=== PATIENT | female | born 1960 | race Caucasian/White ===

== ENCOUNTER 2020-02-12 04:45 | Emergency (ER) | payer BC ==
[2020-02-12] MEDS ORDERED: Ondansetron PF 4 MG/2 ML Vial ONE (05:35)
[2020-02-12 05:36] LABS: #Basophils 0.1 thou/uL (0.0-0.2); #Eosinphils 0.2 thou/uL (0.0-0.7); #Lymphocytes 2.8 thou/uL (1.20-3.40); #Monocytes 1.2 thou/uL (0.11-0.59); #Neutrophils 10.8 thou/uL (1.40-6.50); %Basophils 0.6 % (0.0-1.0); %Eosinophils 1.1 % (0.0-10.0); %Lymphocytes 18.5 % (21.0-51.0); %Monocytes 7.9 % (0.0-10.0); %Neutrophils 71.9 % (42.0-75.0); Hemoglobin 13.4 g/dL (12.0-16.0); Mean Corpuscular HGB CONC 33.7 g/dL (32.0-36.0); Mean Corpuscular Hemoglobin 33.6 pg (27.0-31.0); Mean Corpuscular Volume 99.6 fL (78.0-98.0); Mean Platelet Volume 7.5 fL (7.4-10.4); Platelet Count 270 thou/uL (130-400); RBC Distribution Width 11.8 % (11.5-14.5); Red Blood Cell (RBC) Count 3.99 mill/uL (4.20-5.40); White Blood Cell (WBC) Count 15.1 thou/uL (4.8-10.8)
[2020-02-12 05:59] LABS: ALT (SGPT) 13 U/L (8-55); AST (SGOT) 19 U/L (5-34); Albumin 3.9 g/dL (3.5-5.0); Alkaline Phosphatase 75 U/L (40-110); Anion Gap 8 mmol/L (10-20); BUN (Urea Nitrogen) 12 mg/dL (9.8-20.1); Bilirubin, Total 0.3 mg/dL (0.2-1.2); Calc. Creatinine Clearance 0 mL/min (70-130); Calcium 9.1 mg/dL (7.8-10.44); Carbon Dioxide 25 mmol/L (22-29); Chloride 108 mmol/L (98-107); Estimated GFR-MDRD 77; Globulin 2.5 g/dL (2.4-3.5); Glucose 94 mg/dL (70-105); Potassium 3.4 mmol/L (3.5-5.1); Protein, Total 6.4 g/dL (6.0-8.3); Sodium 138 mmol/L (136-145)
--- NOTE | 2020-02-12 07:16 | CT ---
CT OF THE BRAIN WITHOUT CONTRAST: Date: 02/12/2020 COMPARISON: 05/05/2017. HISTORY: Fell and hit back of head a couple of hours ago. TECHNIQUE: Multiple contiguous axial images were obtained in a CT of the brain without contrast. FINDINGS: The brain is normal in morphology and attenuation without focal lesions or confluent areas of infarct ion. There is no evidence of hydrocephalus, intracranial hemorrhage, or extra-axial fluid collection. The calvarium and overlying soft tissues are unremarkable. The visualized paranasal sinuses and masto id air cells are well aerated. IMPRESSION: No evidence of acute intracranial abnormality. POS: [facility]
--- NOTE | 2020-02-12 07:45 | RAD ---
SINGLE VIEW OF CHEST AND RIGHT RIB SERIES: Date: 02/12/2020 HISTORY: Fell and hit head. Right chest pain. FINDINGS: Single view of the chest and multiple views of the right ribs show a normal sized cardiomediastinal s ilhouette. There is no evidence of consolidation, mass, or pleural effusion. No displaced rib fracture is seen. No pneumothorax is seen. No underlying pleural thickening is seen. IMPRESSION: 1. No evidence of displaced right rib fracture. 2. No evidence of acute cardiopulmonary disease. POS: [facility]
== END 2020-02-12 06:27 | disposition home or self-care (01) ==
LOC: ERS 04:45
DX: S09.90XA Unspecified injury of head, initial encounter (principal); S22.31XA Fracture of one rib, right side, initial encounter for closed fracture; F32.9 Major depressive disorder, single episode, unspecified; F41.9 Anxiety disorder, unspecified; M79.7 Fibromyalgia; W10.9XXA Fall (on) (from) unspecified stairs and steps, initial encounter
CPT/HCPCS: 70450; 80053; 85025; 93005; 96360; J2405

== ENCOUNTER 2020-04-02 15:09 | Outpatient (CLI) | payer BC ==
--- NOTE | 2020-04-02 15:39 | RAD ---
EXAM: XR Cervical Sp Com W/Obl Fl/Ex PROVIDED CLINICAL HISTORY: Cervical spine pain. Patient fell 6 weeks ago. COMPARISON: None FINDINGS: C1 to the cervicothoracic junction is seen on the lateral view. The vertebral body heights and interv ertebral disc spaces are within normal limits. Trace anterolisthesis is seen at the C4-5 level on flexion but is not present on extension or neutral positioning. The vertebral body heights are within normal limits, no fracture is seen. Multilevel facet degenerative changes are identified. Oblique imaging demonstrates no significant bony encroachment on the neural foramina. AP and odontoid views w ere not provided. IMPRESSION: 1. Trace anterolisthesis of C4 on C5 is present with flexion but not visualized with neutral position ing or on extension. 2. Multilevel facet degenerative changes. 3. No fracture is seen on provided lateral or oblique images.
== END 2020-04-02 15:10 | disposition home or self-care (01) ==
LOC: BICRAD 15:09
PROVIDERS: ATTEND Nurse Practitioner Family
DX: M54.2 Cervicalgia (principal); M47.812 Spondylosis without myelopathy or radiculopathy, cervical region
CPT/HCPCS: 72052

== ENCOUNTER 2020-07-04 14:45 | Outpatient (CLI) | payer BC ==
--- NOTE | 2020-07-04 17:09 | MRI ---
MRI RIGHT HIP WITHOUT CONTRAST: 07/04/20 HISTORY: Arthritis. Chronic hip pain. COMPARISON: Hip MRI from 2013. FINDINGS: BONES: Some reactive edema of the footprint right greater trochanter of the gluteus insertions. SI joints ar e without significant edema. Only mild degenerative disease at pubic symphysis. No acute fracture or malalignment. TENDONS: There is severe interstitial tearing of the right gluteus medius tendon also with partial te ars. There is partial retraction of the mid fibers of 1.9 cm which involves approximately 50 to 60% o f the footprint width. Moderate tendinosis of the gluteus minimus tendon. The rectus femoris tendon is intact. The hamstring tendons are intact. Iliopsoas tendon is intact. MUSCLES: No significant muscle atrophy. Moderate to severe myotendinous edema of the distal gluteus medius and minimus. The quadratus femoris muscle is normal. SOFT TISSUES: Small uterus with posterior myometrial and small anterior subserosal fibroids. Small volume free flui d in the pelvis. LABRUM: Mild blunting of the anterior and superior labrum without a displaced tear. IMPRESSION: 1. 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 2. Linear defect of the iliotibial tract, series 6, image 20 measuring 4 mm in AP dimension with a craniocaudal length of 12 mm. This tear is at the level of the greater trochanter. POS: [facility]
== END 2020-07-04 14:46 | disposition home or self-care (01) ==
LOC: BICMRI 14:45
PROVIDERS: ATTEND Anesthesiology Pain Medicine
DX: M19.90 Unspecified osteoarthritis, unspecified site (principal); M76.01 Gluteal tendinitis, right hip